=== PATIENT | male | born 1975 | race Caucasian/White ===

== ENCOUNTER → 2018-10-05 | Outpatient (CLI) | payer BC | END | disposition home or self-care (01) | LOC: LAB 03:00 → LAB SHORT 03:00 | DX: K52.9 Noninfective gastroenteritis and colitis, unspecified (principal) | CPT/HCPCS: 87015; 87045; 87046; 87177; 87205; 87209; 87493; 87899 ==

== ENCOUNTER 2022-01-04 11:11 | Day surgery (SDC) | payer BC ==
[~2022-01-04] VITALS: Ht 172.7 cm; Wt 54.6 kg
[~2022-01-04 11:11] MED LIST: BUDESONIDE EC3 M1 PO; CHOLESTYRAMI239.4 G1 PO; LOPE2C PO; OMEPRAZOLE MAGN20 MG PO; PROBIOTIC1 EAC1 PO
== END 2022-01-04 13:25 | disposition home or self-care (01) ==
LOC: ORSCSDS 11:11
PROVIDERS: Student in an Organized Health Care Education/Training Program
PROC: 0DBN8ZX Excision of Sigmoid Colon, Via Natural or Artificial Opening Endoscopic, Diagnostic (ICD-10-PCS; principal; 2022-01-04 12:30)
PROC: 0DBE8ZX Excision of Large Intestine, Via Natural or Artificial Opening Endoscopic, Diagnostic (ICD-10-PCS; principal; 2022-01-04 12:30)
DX: Z12.11 Encounter for screening for malignant neoplasm of colon (principal); Z86.010 Personal history of colon polyps; K52.831 Collagenous colitis; D12.5 Benign neoplasm of sigmoid colon; K64.4 Residual hemorrhoidal skin tags; K64.8 Other hemorrhoids; K62.89 Other specified diseases of anus and rectum; F17.210 Nicotine dependence, cigarettes, uncomplicated; Z79.899 Other long term (current) drug therapy
CPT/HCPCS: 88305; 88313; J2250; J2704; J7120